=== PATIENT | male | born 1955 | race Caucasian/White ===

== ENCOUNTER → 2016-10-17 | Outpatient (CLI) | payer BC ==
[~2016-10-17] MED LIST: ACT/45 PO; METF1TAB53 PO; REPA1TAB42 PO; SIMV40TA2 PO
--- NOTE | 2016-10-17 17:51 | DIAGNOSTIC IMAGING REPORT ---
ULTRASOUND LEFT VENOUS DOPP LOWER EXT UNILAT CLINICAL HISTORY: Left leg pain and swelling. HYPERCHOLESTEROLEMIA. COMPARISON STUDY: No previous studies for comparison. FINDINGS: Real-time and color flow Doppler imaging were performed. Flow was seen within the femoral, popliteal and calf veins with no intraluminal thrombus demonstrated. There is extensive thrombus within the left greater saphenous vein extending from the proximal thigh to the distal calf. The thrombus extends to the common femoral vein confluence. Thrombus diameter exceeds 1 cm. IMPRESSION: 1. Extensive thrombus within the left greater saphenous vein extending from the proximal thigh to the distal calf. The thrombus extends to the common femoral vein confluence Electronically signed by: Yusuf Parekh M.D. 10/17/2016 5:50 PM Dictated Date/Time: 10/17/2016 5:47 PM
== END | disposition home or self-care (01) ==
LOC: C.ULTR 17:03
PROVIDERS: ATTEND Family Medicine
DX: E78.00 Pure hypercholesterolemia, unspecified (principal); I82.812 Embolism and thrombosis of superficial veins of left lower extremity

== ENCOUNTER → 2016-12-19 | Outpatient (CLI) | payer BC ==
[~2016-12-19] MED LIST changes: +REPA1TAB40 PO; -REPA1TAB42 PO
[2016-12-19 11:35] LABS: ALT/SGPT 29 U/L (12-78); AST/SGOT 18 U/L (15-37); BLOOD UREA NITROGEN 11 mg/dl (7-18); BUN/CREATININE RATIO 11.6 (10-20); CALCIUM 8.9 mg/dl (8.5-10.1); CARBON DIOXIDE 28 mmol/L (21-32); CHLORIDE 106 mmol/L (98-107); CREATININE 0.99 mg/dl (0.60-1.40); GLUCOSE 185 mg/dl (70-99); POTASSIUM 4.4 mmol/L (3.5-5.1); SODIUM 140 mmol/L (136-145)
[2016-12-19 11:38] LABS: ALKALINE PHOSPHATASE 66 U/L (45-117); CHOLESTEROL 179 mg/dl (0-200); CHOLESTEROL/HDL RATIO 2.5; HDL CHOLESTEROL 71 mg/dl; LDL CHOLESTEROL CALCULATED 89 mg/dl; TRIGLYCERIDES 94 mg/dl (0-150); VERY LOW DENSITY LIPOPROT CALC 19 mg/dl
[2016-12-19 12:01] LABS: ESTIMATED AVERAGE GLUCOSE 246 mg/dl; HA1C FLAG Normal (Normal)
== END | disposition home or self-care (01) ==
LOC: C.LABBC 08:22
PROVIDERS: ATTEND Physician Assistant
DX: E78.00 Pure hypercholesterolemia, unspecified (principal); E11.9 Type 2 diabetes mellitus without complications

== ENCOUNTER → 2017-01-19 | Outpatient (CLI) | payer BC ==
--- NOTE | 2017-01-19 16:35 | DIAGNOSTIC IMAGING REPORT ---
ULTRASOUND LEFT VENOUS DOPP LOWER EXT UNILAT CLINICAL HISTORY: I82.812 Thrombosis of saphenous vein, leftFollow-up of thrombusU COMPARISON STUDY: 10/17/2016 FINDINGS: Real-time and color flow Doppler imaging were performed. Flow was seen within the femoral, popliteal and calf veins with no intraluminal thrombus demonstrated. Nonocclusive thrombus is seen within the greater saphenous vein extending from the proximal thigh to the distal calf. IMPRESSION: 1. No evidence of left lower extremity DVT 2. Greater saphenous vein thrombus extending to the proximal thigh to the distal calf. The thrombus diameter is smaller than on the preceding October 17, 2016 study. There is evidence for recanalization, most pronounced distally. Electronically signed by: Yusuf Parekh M.D. 01/19/2017 4:33 PM Dictated Date/Time: 01/19/2017 4:31 PM
== END | disposition home or self-care (01) ==
LOC: C.ULTR 15:51
PROVIDERS: ATTEND Physician Assistant
DX: I82.812 Embolism and thrombosis of superficial veins of left lower extremity (principal)

== ENCOUNTER → 2018-02-23 | Outpatient (CLI) | payer OTHER ==
[2018-02-23 11:51] LABS: HEMOGLOBIN A1C 9.5 % (4.5-5.6)
[2018-02-23 14:57] LABS: ALBUMIN 3.8 gm/dl (3.4-5.0); ALKALINE PHOSPHATASE 61 U/L (45-117); ALT/SGPT 29 U/L (12-78); AST/SGOT 20 U/L (15-37); BLOOD UREA NITROGEN 19 mg/dl (7-18); CALCIUM 9.9 mg/dl (8.5-10.1); CARBON DIOXIDE 28 mmol/L (21-32); CHOLESTEROL 198 mg/dl (0-200); CREATININE 1.07 mg/dl (0.60-1.40); GLUCOSE 159 mg/dl (70-99); LDL CHOLESTEROL CALCULATED 109 mg/dl; POTASSIUM 4.2 mmol/L (3.5-5.1); SODIUM 138 mmol/L (136-145); TOTAL PROTEIN 7.8 gm/dl (6.4-8.2)
== END | disposition home or self-care (01) ==
LOC: C.LABBC 08:19
PROVIDERS: ATTEND Family Medicine Adult Medicine
DX: E11.65 Type 2 diabetes mellitus with hyperglycemia (principal); E78.00 Pure hypercholesterolemia, unspecified; I10 Essential (primary) hypertension